=== PATIENT | female | born 1940 | race Caucasian/White ===

== ENCOUNTER 2023-05-01 08:29 | Day surgery (SDC) | payer MEDICARE, OTHER ==
[~2023-05-01] VITALS: Ht 152.4 cm; Wt 45.9 kg
[2023-05-01 08:45] VITALS: BP 184/88; PULSE 101; RESP 16; TEMP 97.4; O2SAT 100
[2023-05-01] MEDS ORDERED: albumin 25% 100mL bottle x 1 IV PRN (09:15)
[2023-05-01] MEDS ORDERED: ALBU2.5V11 IH (09:32)
[2023-05-01] MEDS ORDERED: LORA-269 PO (09:32)
[2023-05-01] MEDS ORDERED: ATR0.5NEB IH (10:55)
[2023-05-01] MEDS ORDERED: DRON2.5C18 PO (10:55)
[2023-05-01] MEDS ORDERED: FOLI0.4T6 PO (10:55)
[2023-05-01] MEDS ORDERED: DOCU100C40 PO (10:55)
[2023-05-01] MEDS ORDERED: ATOR20TA PO (10:55)
[2023-05-01] MEDS ORDERED: LEVO-65 PO (10:55)
[2023-05-01] MEDS ORDERED: PRED5TAB PO (10:55)
[2023-05-01] MEDS ORDERED: LISI20TA28 PO (10:55)
[2023-05-01] MEDS ORDERED: PRED20TA PO (10:55)
[2023-05-01] MEDS ORDERED: ACET-890 PO (10:55)
[2023-05-01] MEDS ORDERED: CHOL100046 PO (10:55)
[2023-05-01] MEDS ORDERED: BUDE10.7 INH (10:55)
[2023-05-01] MEDS ORDERED: MULT-1085 PO (10:55)
[2023-05-01] MEDS ORDERED: EPOE200015 (10:55)
[2023-05-01] MEDS ORDERED: KEP500T PO (10:55)
[2023-05-01] MEDS ORDERED: FURO-150 PO (10:55)
[2023-05-01 15:22] VITALS: RESP 16; O2SAT 100
[2023-05-01 15:45] VITALS: BP 132/88; PULSE 104; RESP 18; O2SAT 96
[2023-05-01 15:57] VITALS: BP 168/70; PULSE 99; RESP 16; O2SAT 95
== END 2023-05-01 11:11 ==
LOC: SSTAY O 08:29
PROVIDERS: ATTEND Radiology Vascular & Interventional Radiology
DX: J90 Pleural effusion, not elsewhere classified (principal); R06.02 Shortness of breath; I25.10 Atherosclerotic heart disease of native coronary artery without angina pectoris; N18.30 Chronic kidney disease, stage 3 unspecified; I50.9 Heart failure, unspecified; J44.9 Chronic obstructive pulmonary disease, unspecified; Z79.899 Other long term (current) drug therapy
CPT/HCPCS: 32555; C1729